=== PATIENT | male | born 1960 | race Asian ===

== ENCOUNTER 2017-10-11 09:03 | Outpatient (CLI) | payer BC ==
[~2017-10-11 09:03] MED LIST: ASPIRIN81 M1 OR; GLIM4TAB PO; LISI20TA11 PO; METO50TA63 PO
[2017-10-11 09:35] LABS: PLATELET COUNT 210 K/uL (142-355)
[2017-10-11 10:07] LABS: POTASSIUM 3.7 mmol/L (3.6-5.2); SODIUM 137 mmol/L (136-145)
== END 2017-10-11 10:05 | disposition home or self-care (01) ==
LOC: LABW 09:03
PROVIDERS: Internal Medicine
DX: E11.9 Type 2 diabetes mellitus without complications (principal)
CPT/HCPCS: 36415; 80053; 80061; 81000; 82043; 82570; 83036; 84439; 84443; 85027

== ENCOUNTER 2018-12-20 12:35 | Outpatient (CLI) | payer BC, OTHER ==
[2018-12-20 12:52] LABS: PLATELET COUNT 243 K/uL (142-355)
[2018-12-20 13:32] LABS: POTASSIUM 4.2 mmol/L (3.6-5.2)
== END 2018-12-20 23:02 | disposition home or self-care (01) ==
LOC: LABW 12:35
PROVIDERS: Internal Medicine
DX: E11.9 Type 2 diabetes mellitus without complications (principal)
CPT/HCPCS: 36415; 80053; 80061; 81000; 82043; 82570; 83036; 84443; 85027